=== PATIENT | male | born 1950 | race Caucasian/White ===

== ENCOUNTER 2024-03-31 16:25 | Emergency (ER) | payer MEDICARE, OTHER, SELFPAY ==
[2024-03-31 16:27] VITALS: BP 151/97
--- NOTE | 2024-03-31 18:13 | ED.GENMED ---
History of Present Illness
General
Chief Complaint: Back Pain
Exam Limitations: none
Time Seen by Provider: 03/31/24 18:13
History of Present Illness
History of Present Illness:
Patient is a 73-year-old male who presents to the ER for abdominal pain and constipation. Patient initially started with low back pain around 4 weeks ago after lifting his friend into a truck. reports that she has given him several tramadol
that were originally their pets. In addition she has given him some of her muscle relaxers. He has not been taking ibuprofen. He does feel the pain is worse across his lower back worse when he moves. He denies any radiation. Denies any loss of
bowel or bladder. Denies any numbness tingling weakness in extremities he. He denies any saddle paresthesia.
In addition he has been constipated for the past several days. He has been using Senokot suppositories along with a fleets enema. reports he did move his bowels last night after the enema and did have a small solid bowel movement ere in
the ER. He was nauseous while he was driving here to the ER however now that is has improved.
He has been drinking and eating.
He denies any fever chills.
Review of Systems
Review of Systems
Allergies reviewed?: Yes
All Other Systems: ROS reviewed and negative except as documented in HPI and ROS
Constitutional: Reports no symptoms
Respiratory: Reports no symptoms
Cardiac: Reports no symptoms
ABD/GI: Reports constipated; Denies nausea or vomiting
: Reports no symptoms; Denies incontinence
Musculoskeletal: Reports back pain
Skin: Reports no symptoms
Neurological: Reports no symptoms
Psychiatric: Reports no symptoms
Phy Exam
General Physical Exam
General Presentation: well appearing
General age: appears stated age
General Skin: warm and dry
General Habitus: elderly
General Hydration: appears well hydrated
Cardiovascular Exam
Cardiovascular Exam: regular rate/rhythm, no murmur and normal peripheral pulses
Pulmonary Exam
Pulmonary Exam: lungs clear and no respiratory distress
Gastrointestinal Exam
Gastrointestinal Exam: soft and other (rectal exam: no solid stool in rectum, no impaction small amt of brown stool heme neg )
Neurological Exam
Neurological Exam: alert and oriented x3
Musculoskeletal Exam
Musculoskeletal Exam: full ROM
Skin Exam
Skin Exam: normal color and warm/dry
Psychiatric Exam
Psychiatric Exam: normal mood/affect
Course
Orders/Labs/Results
Orders:
Orders
03/31/24 18:27
Ketorolac [Toradol] 30 mg IM NOW STA
diazePAM [Valium Injection] 5 mg IM NOW STA
03/31/24 18:40
Lumbar Spine Complete, 4 View [CR Lumbar Spine Comp Min 4 Vw*] Urgent
Comment:
Reason For Exam: low back pain
Obstruct Series W/PA Chest [CR Obstruct Series W/pa Chest] Urgent
Comment:
Reason For Exam: constipation
Vital Signs
Initial and Last Documented VS:
Initial Vital Signs
Temp Pulse Resp BP Pulse Ox
98.5 F 97 18 151/97 96
03/31/24 16:27 03/31/24 16:27 03/31/24 16:27 03/31/24 16:27 03/31/24 16:27
Last Documented Vital Signs
Temp Pulse Resp BP Pulse Ox
97.7 F 97 18 126/76 96
03/31/24 21:15 03/31/24 16:27 03/31/24 16:27 03/31/24 21:15 03/31/24 16:27
MDM/Problems Addressed
Differential Diagnosis Includes:
Not limited to muscle strain versus compression fracture, constipation/obstruction
MDM/Problems Addressed:
73-year-old male presents to the ER with back pain and constipation. Patient started back pain several weeks ago after lifting and assisting his friend into a truck. He denies any radiation of pain. Exam is tender throughout the lower back.
X-rays of lumbar spine do show age-indeterminate compression fractures of L1 and T12. Patient was given Valium and Toradol here however with age will have patient do Tylenol with close outpatient follow-up family doctor recommended outpatient
follow-up may need physical therapy.
Regarding constipation patient denies any nausea vomiting; no impaction on exam; x-ray does show moderate colonic stool burden. Recommended MiraLAX. I did offer patient enema here however he declined. He is well-appearing in no acute distress
stable for discharge home
*Radiology
Radiology exam reviewed: radiology read reviewed
*Pulse Oximetry
Patient hypoxic: no
*Critical Care Note
Total Time (30-74mins, 75-104mins- exclusive of procedures): Not Applicable
ED Attending Note
-
Portions of this chart may have been created with voice recognition software.� Occasional wrong word or��sound alike� substitutions may have occurred due to the inherent limitations of voice recognition software.
Discharge Plan
Departure
Patient Disposition: Home (Routine Discharge)
Date of Disposition: 03/31/24
Time of Disposition: 21:02
Patient with high blood pressure during this ER visit?: Yes
Condition: Fair
Covid-19: Not Applicable
Discharge Problem:
Low back pain, Compression fracture, Acute constipation
Instructions: Vertebral Compression Fracture (DC), Constipation, Adult ED, BLOOD PRESSURE
Referrals:
John Forbes Jr., DO [Family Provider] -
Activity Restrictions/Additional Instructions:
Warm moist heat to affected area
Tylenol as needed for pain.
As discussed please take MiraLAX every day and in addition Colace for stool softener. Follow-up with your family doctor the next of days for reevaluation of your symptoms. Physical therapy is also possibility that you may discuss with your family
doctor. Return if any worsening of symptoms
Interventions
Interventions:
*Risk Screen - Suicide Last Done: 03/31/24 16:27
*General Assessment Last Done: 03/31/24 16:27
*Neglect/Abuse Screening Last Done: 03/31/24 16:27
ED- Fall Risk Assessment Last Done: 03/31/24 21:16
*ED COVID-19 Vaccine History Last Done: 03/31/24 16:27
*Nursing Disposition Last Done: 03/31/24 21:19
ED-Musculoskeletal Assessment Last Done: 03/31/24 21:16
Discharge Date and Time
Discharge Date/Time: 03/31/24 21:20
Print Language: PERUVIAN
[2024-03-31] MEDS: TORADOL 30 MG IM (18:39)
[2024-03-31] MEDS: VALIUM INJECTION 5 MG IM (18:39)
[2024-03-31 21:14] VITALS: BMI 25.0
[2024-03-31 21:15] VITALS: BP 126/76
== END 2024-03-31 21:20 | disposition home or self-care (01) ==
LOC: EMR 16:25
PROVIDERS: EMERGENCY PHYSICIAN Emergency Medicine; FAMILY PHYSICIAN Family Medicine
DX: K59.09 Other constipation (principal)
CPT/HCPCS: 99283; 96372; 72110; 74022

== ENCOUNTER 2025-03-12 18:48 | Emergency (ER) | payer MEDICARE, OTHER, SELFPAY ==
[2025-03-12 18:50] VITALS: BP 206/113
[2025-03-12 20:38] VITALS: BMI 25.5
[2025-03-12 21:40] VITALS: BP 210/117
--- NOTE | 2025-03-12 21:47 | ED.GENMED ---
History of Present Illness
General
Chief Complaint: Catheter/Tube Problem
Source: patient and spouse
Exam Limitations: none
Time Seen by Provider: 03/12/25 20:40
Nursing documentation reviewed up to this point in time: agreed with
History of Present Illness
History of Present Illness:
Note:
CHIEF COMPLAINT(S)
Discomfort due to catheter issues and history of bladder obstruction.
HISTORY OF PRESENT ILLNESS
The patient is a 74-year-old male presenting with discomfort associated with a suprapubic catheter that was placed approximately one month ago due to a bladder issue following radiation therapy for prostate cancer. The patient reported to be in
significant discomfort, which he described as 'brutal.' The catheter appears to be clogged, which has been an issue for several weeks. The patient also reported experiencing back pain for the last couple of weeks, which he suspects may be
kidney-related ('maybe theyre stones').
The patients spouse provided additional context, noting a history of bladder obstruction approximately ten years ago, potentially related to a catheter, and mentioned that a recent procedure was conducted at [facility]. During this recent procedure, a
dye study was performed, but no recurrence of cancer was noted. The patient previously had a Beckwith catheter due to bleeding and clot formation, which was placed in the operating room for urinary obstruction but was subsequently removed after a few
days.
EXTERNAL RECORDS REVIEWED
Not available due to system issues with record transfers from [facility].
PROBLEM LIST
Acute Problems:
- Discomfort due to catheter obstruction
- Back pain, suspected kidney stones
- History of bladder obstruction
CHRONIC MEDICAL CONDITIONS SIGNIFICANTLY AFFECTING CARE
- Prostate cancer treated with radiation therapy
SOCIAL DETERMINANTS AFFECTING HEALTH
The patients spouse is providing support during the medical visit.
PHYSICAL EXAM
General: Alert, no acute distress.
Skin: Warm, dry.
Head: Normocephalic, atraumatic.
Neck: Supple, trachea midline.
Eye Ears, nose, mouth and throat: Oral mucosa moist.
Cardiovascular: Normal peripheral perfusion, No edema.
Respiratory: Respirations are non-labored.
Gastrointestinal: Abdomen nondistended, suprapubic tenderness, suprapubic beckwith catheter in place
Back: Normal range of motion, Normal alignment.
Musculoskeletal: Normal range of motion, normal strength.
Neurological: Alert and oriented to person, place, time, and situation, No focal neurological deficit observed.
Psychiatric: Cooperative, appropriate mood & affect.
PLAN
Discussed with the patient the potential need to talk with a urologist regarding the catheter, as it has not been in place long. Consideration for possible intervention should the obstruction persist.
DIFFERENTIAL DIAGNOSIS
The Differential Diagnosis includes, in no particular order and is not limited to:
1. Catheter blockage
2. Urinary tract infection
3. Kidney stones
4. Catheter-associated discomfort
5. Bladder spasm
6. Obstructive uropathy
7. Post-radiation changes
8. Musculoskeletal back pain
9. Renal colic
10. Persistent urinary obstruction due to prostate issues
CARE-UPDATE
03/13/25 - 01:27
Beckwith bag connection was removed and the beckwith catheter was irrigated due to obstruction likely caused by sediment. Patient hCance experienced immediate relief following drainage from the catheter.
Disposition:
SUMMARY OF ENCOUNTER
The patient presented to the emergency department with discomfort from a suprapubic catheter suspected of being clogged. After performing an irrigation of the catheter, the patients symptoms improved.
DISPOSITION
Discharge
PLAN
Discharge patient with instructions to follow up with urology at [facility] for further management.
MEDICAL DECISION MAKING
- Number and Complexity of Problems Addressed: Chronic conditions affecting care include prostate cancer, medical history indicating bladder obstruction, and catheter obstruction.
- DDX list: Catheter blockage, urinary tract infection, kidney stones, catheter-associated discomfort, bladder spasm, obstructive uropathy, post-radiation changes, musculoskeletal back pain, renal colic, persistent urinary obstruction due to
prostate issues.
- Data:
Category 1: Tests and documents reviewed include information obtained from an independent historian.
Category 2: None available.
Category 3: None available.
- Risk:
- Consideration of Admission/Observation: Escalation of care including admission/observation was considered given the complexity and risk of the patients presenting complaint, exam findings, and/or their underlying comorbidities. However, ultimately
I feel the patient is safe for outpatient management with close follow-up. Reasoning: Work-up reassuring, does not reveal any acute life/organ-threatening processes, patients symptoms well controlled upon reevaluation, reexamination is reassuring,
vitals are stable, patient agreeable with discharge, reliable for follow-up.
DIAGNOSIS
1. T83.091 - Other mechanical complication of suprapubic urinary (indwelling) catheter.
Phy Exam
Physical Exam
Physical Exam:
.
Course
Orders/Labs/Results
Orders:
Orders
03/12/25 20:37
Bladder Scan- Treatment ONCE
Vital Signs
Initial and Last Documented VS:
Initial Vital Signs
Temp Pulse Resp BP Pulse Ox
98.4 F 96 20 206/113 95
03/12/25 18:50 03/12/25 18:50 03/12/25 18:50 03/12/25 18:50 03/12/25 18:50
Last Documented Vital Signs
Temp Pulse Resp BP Pulse Ox
98.4 F 90 35 184/101 97
03/12/25 18:50 03/12/25 21:38 03/12/25 21:38 03/12/25 21:50 03/12/25 21:50
*Pulse Oximetry
SaO2: 97
Oxygen Mode of Delivery: Room air
Patient hypoxic: no
*Critical Care Note
Total Time (30-74mins, 75-104mins- exclusive of procedures): Not Applicable
ED Attending Note
-
Portions of this chart may have been created with voice recognition software.� Occasional wrong word or��sound alike� substitutions may have occurred due to the inherent limitations of voice recognition software.
Discharge Plan
Departure
Patient Disposition: Home (Routine Discharge)
Date of Disposition: 03/12/25
Time of Disposition: 21:48
Patient with high blood pressure during this ER visit?: Yes
Condition: Good
Discharge Problem:
Blocked suprapubic catheter
Instructions: How to Care for Your Beckwith Catheter, Male, BLOOD PRESSURE
Referrals:
John Forbes Jr., DO [Family Provider, Family Practice]
Interventions
Interventions:
*Risk Screen - Suicide Last Done: 03/12/25 18:50
*General Assessment Last Done: 03/12/25 18:50
*Neglect/Abuse Screening Last Done: 03/12/25 18:50
*ED- Fall Risk Assessment Last Done: 03/12/25 20:39
*ED COVID-19 Vaccine History Last Done: 03/12/25 20:39
*ED Influenza Vaccine History Last Done: 03/12/25 20:39
*Nursing Disposition Last Done: 03/12/25 22:06
CY-Drpyrx-Oyffkavpfw Assessment Last Done: 03/12/25 20:39
ED-Male Genitourinary Assessment Last Done: 03/12/25 20:39
Discharge Date and Time
Discharge Date/Time: 03/12/25 22:06
Print Language: PAP[place]
[2025-03-12 21:50] VITALS: BP 184/101
== END 2025-03-12 22:06 | disposition home or self-care (01) ==
LOC: EMR 18:48
PROVIDERS: EMERGENCY PHYSICIAN Emergency Medicine; FAMILY PHYSICIAN Family Medicine
DX: T83.091A Other mechanical complication of indwelling urethral catheter, initial encounter (principal); Y73.8 Miscellaneous gastroenterology and urology devices associated with adverse incidents, not elsewhere classified; R03.0 Elevated blood-pressure reading, without diagnosis of hypertension; C61 Malignant neoplasm of prostate; Z92.3 Personal history of irradiation
CPT/HCPCS: 99282

== ENCOUNTER 2025-04-16 20:04 | Emergency (ER) | payer MEDICARE, OTHER, SELFPAY ==
[2025-04-16 20:06] VITALS: BP 219/110; BMI 26.0
[2025-04-16 20:33] LABS: Urine Character Slightly Cloudy (Clear)
[2025-04-16 20:45] LABS: Urine Red Blood Cell >100 /HPF (0-2); Urine Squamous Cell 0-2 /LPF (Few); Urine White Cell 40-50 /HPF (0-5)
[2025-04-16 21:00] VITALS: BP 189/99
[2025-04-16 22:00] VITALS: BP 177/98
--- NOTE | 2025-04-16 22:06 | ED.GENMED ---
History of Present Illness
General
Chief Complaint: Catheter/Tube Problem
Source: patient and spouse
Exam Limitations: none
Time Seen by Provider: 04/16/25 20:08
Nursing documentation reviewed up to this point in time: agreed with
History of Present Illness
History of Present Illness:
74-year-old male past medical history of hypertension hyperlipidemia CAD asthma presenting to the emergency department today with concerns of urinary retention and a blocked suprapubic catheter. Last replaced a few weeks ago. Otherwise [place] any
fevers chest pain shortness of breath or additional symptoms otherwise.
Review of Systems
Review of Systems
Allergies reviewed?: Yes
All Other Systems: ROS reviewed and negative except as documented in HPI and ROS
Phy Exam
Physical Exam
Physical Exam:
GENERAL: Alert , in no apparent distress
EYE: pupils equal and reactive
NECK: Supple, no significant adenopathy.
ENT: o/p clr, mmm.
CARDIAC: Regular rate and rhythm .
LUNGS: Clear breath sounds bilaterally, no acute respiratory distress, no wheezes/rales/rhonchi
ABDOMEN: Suprapubic catheter in place blocked, otherwise soft, without focal tenderness, no r/g, no cvat
NEUROLOGICAL: Alert and oriented, no focal neuro deficits
SKIN: Warm and dry, skin intact.
MUSCULOSKELETAL: No edema, well perfused.
PSYCH: Normal and appropriate interaction.
Course
Orders/Labs/Results
Orders:
Orders
04/16/25 20:23
Urinalysis Reflex To Culture Urgent
Date Specimen was Collected: 04/16/25
Time Specimen was Collected: 20:22
Urine Microscopic Reflex Cult Urgent
Urine Culture Urgent
UBALDO Source: U
Specimen Description:
Obtained by: Random
Date Specimen was Collected: 04/16/25
Time Specimen was Collected: 20:22
04/16/25 22:05
Cefdinir [Omnicef] 300 mg PO NOW STA
Oxybutynin Chloride [Ditropan] 5 mg PO NOW STA
Abnormal Lab Results
04/16/25
20:23
Ur Occult Blood Reflex 4+ A
(Negative)
Urine Nitrite (Reflex) Positive A
(Negative)
Urine Bilirubin 2+ A
(Negative)
Urine Urobilinogen 2+ A
(Neg - 1+)
Leukocyte Esterase Rfl 3+ A
(Negative)
Urine RBC >100 A /HPF
(0-2)
Urine WBC (Reflex) 40-50 A /HPF
(0-5)
Urine Bacteria (Reflex) Moderate A
(Negative)
Urine Albumin (Reflex) 3+ A
(Neg - Trace)
Vital Signs
Initial and Last Documented VS:
Initial Vital Signs
Temp Pulse Resp BP Pulse Ox
97.9 F 106 22 219/110 96
04/16/25 20:06 04/16/25 20:06 04/16/25 20:06 04/16/25 20:06 04/16/25 20:06
Last Documented Vital Signs
Temp Pulse Resp BP Pulse Ox
97.9 F 95 20 219/110 96
04/16/25 20:06 04/16/25 20:57 04/16/25 20:57 04/16/25 20:06 04/16/25 21:00
MDM/Problems Addressed
MDM/Problems Addressed:
74-year-old male presenting to the emergency department today with concerns of a blocked suprapubic catheter. Unable to urinate over the past few hours. Here suprapubic catheter was replaced without incident. Urine appears to be consistent with
infection. Patient was treated with antibiotic otherwise stable for close outpatient follow-up. Return precautions given.
*Pulse Oximetry
SaO2: 96
Oxygen Mode of Delivery: Room air
Patient hypoxic: no (96)
*Critical Care Note
Total Time (30-74mins, 75-104mins- exclusive of procedures): Not Applicable
ED Attending Note
-
Portions of this chart may have been created with voice recognition software.� Occasional wrong word or��sound alike� substitutions may have occurred due to the inherent limitations of voice recognition software.
Discharge Plan
Departure
Patient Disposition: Home (Routine Discharge)
Date of Disposition: 04/16/25
Time of Disposition: 22:07
Patient with high blood pressure during this ER visit?: No
Condition: Good
Covid-19: Not Applicable
Discharge Problem:
Acute UTI, Blocked suprapubic catheter
Instructions: How to Care for Your Cadet Catheter, Male
Prescriptions:
New
cefpodoxime 200 mg tablet
200 mg PO BID 7 Days Qty: 14 0RF
oxybutynin chloride 5 mg tablet
5 mg PO BID PRN (Reason: bladder spasms) Qty: 7 0RF
Referrals:
UNKNOWN - PT DOES,NOT KNOW [Family Provider]
Activity Restrictions/Additional Instructions:
You came to the emergency department today with concerns of blocked suprapubic catheter. This was replaced. You were started on antibiotics to help with potential infection. Please otherwise follow-up closely with your urologist in the next week.
Return for any worsening, new or concerning symptoms.
Interventions
Interventions:
*Risk Screen - Suicide Last Done: 04/16/25 20:06
*General Assessment Last Done: 04/16/25 20:06
*Neglect/Abuse Screening Last Done: 04/16/25 20:06
*ED COVID-19 Vaccine History Last Done: 04/16/25 20:06
*ED Influenza Vaccine History Last Done: 04/16/25 20:06
[facility] Fall Risk Assessment Tool Last Done: 04/16/25 20:39
YX-Sskmfy-Iibcmjhqck Assessment Last Done: 04/16/25 20:15
ED-Male Genitourinary Assessment Last Done: 04/16/25 20:15
Discharge Date and Time
Print Language: ROMANIAN
[2025-04-16] MEDS: DITROPAN 5 MG PO (22:15)
[2025-04-16] MEDS: OMNICEF 300 MG PO (22:15)
== END 2025-04-16 22:28 | disposition home or self-care (01) ==
LOC: EMR 20:04
PROVIDERS: Physician Assistant; EMERGENCY PHYSICIAN Emergency Medicine
DX: N39.0 Urinary tract infection, site not specified (principal); B96.5 Pseudomonas (aeruginosa) (mallei) (pseudomallei) as the cause of diseases classified elsewhere; T83.090A Other mechanical complication of cystostomy catheter, initial encounter; Y73.8 Miscellaneous gastroenterology and urology devices associated with adverse incidents, not elsewhere classified; I25.10 Atherosclerotic heart disease of native coronary artery without angina pectoris; I10 Essential (primary) hypertension; E78.5 Hyperlipidemia, unspecified; J45.909 Unspecified asthma, uncomplicated
CPT/HCPCS: 99283; 81003; 81015; 87077; 87086